=== PATIENT | male | born 1995 | race Caucasian/White ===

== ENCOUNTER 2020-09-13 08:20 | Day surgery (SDC) | payer OTHER ==
[~2020-09-13] VITALS: Ht 188 cm; Wt 105.1 kg
[~2020-09-13 08:20] MED LIST: LIDOCAINE 1% MDV 20ML VIAL SQ PRN; LR 1,000 ML IV ONE
[2020-09-13] MEDS ORDERED: propofoL 200 MG/20 ML VIAL As Ordered ONE (10:31)
[2020-09-13] MEDS ORDERED: EPINEPHrine 1MG/ML INJ 30ML MD-VIAL As Ordered ONE (10:31)
[2020-09-13] MEDS ORDERED: LIDOCAINE W/EPINEPHRINE 1% 20ML VIAL As Ordered ONE (10:31)
[2020-09-13] MEDS ORDERED: fentaNYL 250 MCG/5 ML INJECTION (J3010) As Ordered ONE (10:31)
[2020-09-13] MEDS ORDERED: MIDAZOLAM INJ 2MG/2ML VIAL (J2250 PER 1MG) As Ordered ONE (10:31)
[2020-09-13] MEDS ORDERED: METHYLENE BLUE 0.5% (5MG/ML) 10 ML AMP (PROVAYBLUE) As Ordered ONE (10:31)
[2020-09-13] MEDS ORDERED: LIDOCAINE 2% 100MG/5ML SDV (FOR ANES.) As Ordered ONE (10:31)
[2020-09-13] MEDS ORDERED: SUGAMMADEX SODIUM 500 MG/5 ML VIAL (BRIDION) As Ordered ONE (10:32)
[2020-09-13] MEDS ORDERED: ACETAMINOPHEN 1000MG 100ML IV BTL (OFIRMEV) (J0131 PER 10MG) As Ordered ONE (10:32)
[2020-09-13] MEDS ORDERED: ROCURONIUM BROMIDE 50 MG/5 ML VIAL As Ordered ONE (10:32)
[2020-09-13] MEDS ORDERED: ONDANSETRON 4MG/2ML VIAL As Ordered ONE (10:32)
[2020-09-13] MEDS ORDERED: dexameTHASONE 4 MG/ML 1ML VIAL (J1100 PER 1MG) As Ordered ONE (10:32)
[2020-09-13] MEDS ORDERED: fentaNYL 100 MCG/2 ML INJECTION (J3010) IV PRN (11:55)
[2020-09-13] MEDS ORDERED: ONDANSETRON 4MG/2ML VIAL IV PRN (11:55)
[2020-09-13] MEDS ORDERED: LR 1,000 ML IV SCH (11:55)
[2020-09-13] MEDS ORDERED: oxyCODONE 5MG TAB PO PRN (11:55)
[2020-09-13 13:04] VITALS: BP 142/68
--- NOTE | 2020-09-13 14:25 | RO ---
OPERATIVE NOTE DATE OF OPERATION: 09/13/2020 PREOPERATIVE DIAGNOSES: 1. Nasoseptal deviation. 2. Chronic rhinitis. POSTOPERATIVE DIAGNOSES: 1. Nasoseptal deviation. 2. Chronic rhinitis. OPERATIVE PROCEDURES: 1. Septoplasty. 2. Bilateral turbinectomy. SURGEON: Moise Marley M.D. [employer] PRO[employer] DESIGNER: None. ANESTHESIA: General. DESCRIPTION OF PROCEDURE: Under general anesthesia, the patient was intubated. The patient was prepped and draped in the usual manner. I used pledgets soaked in adrenaline 1:1000 and infiltrated with Lidocaine with epinephrine. I made an incision on the left side and elevated the subperichondrial and periosteal planes. I elevated the tissues off of the maxillary crest, ethmoid plate, and vomer. I the quadrangular cartilage from the ethmoid plate and maxillary crest. I removed a portion of the maxillary crest, ethmoid plate, and vomer spur on the left side. Once this was done, the septum was straight so the incision was closed with 4-0 Chromic. Incision made anterior to the inferior turbinate on both sides. I elevated the mucosa. I used the microdebrider to remove some of the libby, as well as forceps. I closed that incision with 4-0 Vicryl. The patient tolerated the procedure well. Minimal bleeding. Patient extubated and transferred to the recovery room in excellent condition.
== END 2020-09-13 13:05 | disposition home or self-care (01) ==
LOC: M SDC 08:20
PROVIDERS: ATTEND Otolaryngology
DX: J34.2 Deviated nasal septum (principal); J31.0 Chronic rhinitis; F17.290 Nicotine dependence, other tobacco product, uncomplicated
CPT/HCPCS: 30520; 30801; 88300; J0131; J1100; J2250; J2405; J3010; Q9968

== ENCOUNTER → 2022-01-10 | Outpatient (REF) | LOC: M PLAIMG 10:12 | PROVIDERS: ATTEND Internal Medicine | DX: Z00.00 Encounter for general adult medical examination without abnormal findings (principal) ==

== ENCOUNTER → 2022-01-31 | Outpatient (CLI) | payer OTHER | LOC: M PLAIMG 06:51 | PROVIDERS: ATTEND Student in an Organized Health Care Education/Training Program | DX: M25.831 Other specified joint disorders, right wrist (principal); M25.832 Other specified joint disorders, left wrist ==